=== PATIENT | female | born 1950 | race Caucasian/White ===

== ENCOUNTER 2017-02-27 18:10 | Emergency (ER) | payer MEDICARE, BC ==
[2017-02-27 19:13] VITALS: BP 148/73
--- NOTE | 2017-02-27 19:30 | EDM.PDOC ---
[id number]: RASH Time Seen by Provider: 02/27/17 19:15 Source of Information: Reports: Patient History Limitations: Reports: No Limitations - History of Present Illness INITIAL COMMENTS - FREE TEXT/NARRATIVE: 66-year-old female is developed a rash on her chin and upper neck and chest over the past 3 days. She's been working with some cedar stain she thinks she might be reacting to. She has been putting some topical antibiotic ointment on but it is getting worse. No shortness of breath, no widespread rash. Location: Reports: Face, Neck, Chest - Related Data Allergies Allergy/AdvReac Type Severity Reaction Status Date / Time No Known Allergies Allergy Verified 05/09/15 13:31 Home Meds: Home Meds Albuterol Sulfate [Proair Hfa] 2 puff IH QID PRN 05/10/15 [History] Albuterol [Proventil] 1 inhalation IH Q4H PRN 05/10/15 [History] Aspirin [Children's Aspirin] 81 mg PO DAILY 05/10/15 [History] Cholecalciferol (Vitamin D3) [Vitamin D] 2,000 unit PO DAILY 05/10/15 [History] Citalopram Hydrobromide [Celexa] 20 mg PO DAILY 05/10/15 [History] Lisinopril/Hydrochlorothiazide [Lisinopril-Hctz 20-12.5 mg Tab] 1 tab PO DAILY 05/10/15 [History] Loratadine [Claritin] 10 mg PO DAILY 05/10/15 [History] Montelukast [Singulair] 10 mg PO BEDTIME 05/10/15 [History] Simvastatin [Simvastatin] 20 mg PO DAILY 05/10/15 [History] buPROPion HCl [Wellbutrin Xl] 150 mg PO QAM 05/10/15 [History] Past Medical History Cardiovascular History: Reports: Hypertension Respiratory History: Reports: Asthma Social & Family History - Tobacco Use Smoking Status *Q: Never Smoker Second Hand Smoke Exposure: No - Caffeine Use Caffeine Use: Reports: Coffee - Recreational Drug Use Recreational Drug Use: No ED ROS GENERAL - Review of Systems Review Of Systems: See Below Constitutional: Denies: Fever, Chills Respiratory: Denies: Shortness of Breath, Cough Cardiovascular: Denies: Chest Pain GI/Abdominal: Denies: Abdominal Pain ED EXAM, SKIN/RASH Exam: See Below Exam Limited By: No Limitations General Appearance: Alert, No Apparent Distress Head: Other (Erythematous rash over the chin and left zygomatic area) Neck: Other (Erythematous rash over the anterior neck, upper chest) Respiratory/Chest: No Respiratory Distress Neurological: Alert, Oriented Psychiatric: Normal Affect, Normal Mood Course - Vital Signs Last Recorded V/S: Last Vital Signs Temp 98.8 F 02/27/17 19:13 Pulse 97 02/27/17 19:13 Resp 16 02/27/17 19:13 BP 148/73 H 02/27/17 19:13 Pulse Ox 97 02/27/17 19:13 - Re-Assessments/Exams Free Text/Narrative Re-Assessment/Exam: 02/27/17 19:29 Patient was told to stop the antibiotic ointment, given triamcinolone cream to apply twice daily and also oral prednisone to take 50 mg daily up to 6 days. She'll recheck in 2-3 days if not improving. Departure - Departure Time of Disposition: 19:45 Disposition: Home, Self-Care 01 Condition: good Clinical Impression: Contact dermatitis Qualifiers: Contact dermatitis type: irritant Contact dermatitis trigger: unspecified trigger Qualified Code(s): L24.9 - Irritant contact dermatitis, unspecified cause - Discharge Information Instructions: Contact Dermatitis, [id number] Referrals: Arielle Castellanos CNM [Primary Care Provider] - Forms: ED Department Discharge Care Plan Goals: Try topical cream twice daily along with 5 pills of prednisone with your first food each day up to 6 days. Consider rechecking in 2-3 days if not significant improvement.
== END 2017-02-27 19:45 | disposition home or self-care (01) ==
LOC: JP.ED 18:10
DX: L24.9 Irritant contact dermatitis, unspecified cause (principal); I10 Essential (primary) hypertension; J45.909 Unspecified asthma, uncomplicated; Z79.82 Long term (current) use of aspirin; Z79.899 Other long term (current) drug therapy
CPT/HCPCS: 99283

== ENCOUNTER 2018-06-10 06:23 | Day surgery (SDC) | payer MEDICARE, BC ==
[2018-06-10] MEDS ORDERED: Lactated Ringers 1,000 ML IV SCH (07:00)
[2018-06-10] MEDS ORDERED: fentaNYL 100 MCG/2 ML SDV ONE (07:16)
[2018-06-10] MEDS ORDERED: Midazolam 1 MG/ML 2 ML SDV ONE (07:16)
[2018-06-10] MEDS ORDERED: Propofol 200 MG/20 ML SDV ONE (07:16)
[2018-06-10 09:20] VITALS: BP 117/70
--- NOTE | 2018-06-13 08:19 | OR ---
DATE OF PROCEDURE: 06/10/2018 PREOPERATIVE DIAGNOSIS: History of precancerous polyps. POSTOPERATIVE DIAGNOSES: Diverticulosis and history of precancerous polyps. PROCEDURE PERFORMED: Colonoscopy to the cecum. SURGEON: Rigo Kelley MD ANESTHESIA: IV anesthesia with monitored anesthesia care. INDICATION: This 68-year-old white female is referred for a colonoscopy because of history of precancerous polyps. She says her last colonoscopic exam was done 3 years ago. I counseled her for the procedure including risks, alternatives, and she gave her informed consent to proceed. DESCRIPTION OF PROCEDURE: The patient was placed in the left lateral decubitus position. IV anesthesia was administered by the Anesthesia Service. Time-out was held. A rectal exam was performed, which was unremarkable. The flexible video Olympus colonoscope was introduced through her anus, up her rectum, out her colon all the way to the cecum. En route, we saw multiple left-sided diverticula, some were quite large. There was no bleeding or inflammation associated with them. Once the cecum was reached, the scope was slowly withdrawn examining the mucosa throughout. No additional mucosal abnormalities were noted. The scope was retroflexed in the rectum with the distal rectum appearing unremarkable. The scope was straightened and removed. She tolerated the procedure well. No neoplastic lesions were seen. Rigo Kelley MD /[id number]
== END 2018-06-10 09:18 | disposition home or self-care (01) ==
LOC: JP.SDS 06:23
PROVIDERS: ATTEND Surgery
DX: Z12.11 Encounter for screening for malignant neoplasm of colon (principal); K57.30 Diverticulosis of large intestine without perforation or abscess without bleeding; I10 Essential (primary) hypertension; J45.909 Unspecified asthma, uncomplicated; E78.5 Hyperlipidemia, unspecified; K21.9 Gastro-esophageal reflux disease without esophagitis; F32.9 Major depressive disorder, single episode, unspecified; Z86.010 Personal history of colon polyps
CPT/HCPCS: G0105; J2250; J2704; J3010; J7120

== ENCOUNTER 2021-06-26 05:51 | Day surgery (SDC) | payer MEDICARE ==
[2021-06-26] MEDS ORDERED: Sodium Chloride 0.9% 10 ML Syringe FLUSH PRN (06:30)
[2021-06-26 07:47] VITALS: BP 134/70; PULSE 66
--- NOTE | 2021-06-26 09:23 | OR ---
DATE OF PROCEDURE: 06/26/2021 SURGEON: Loan Schneider MD POSTOPERATIVE CARE: Postoperative care will be provided mainly at the [address] [place] [address] [facility] in conjunction with [facility]. PREOPERATIVE DIAGNOSIS: Cataract, left eye. POSTOPERATIVE DIAGNOSIS: Cataract, left eye. PROCEDURE: Phacoemulsification with intraocular lens placement, left eye. ANESTHESIA: Topical and intracameral. ESTIMATED BLOOD LOSS: Minimal. COMPLICATIONS: None. PATHOLOGY SPECIMENS: None. SURGICAL FINDINGS: None. INDICATION FOR PROCEDURE: The patient is a 71-year-old female with history of a visually significant cataract in the left eye, which interfered with activities of daily living. This consisted of a nuclear sclerosis cataract. Following careful discussion of the risks, benefits and alternatives to cataract extraction with intraocular lens placement including blindness and , the patient elected to proceed, and informed, written consent was obtained prior to the procedure. DESCRIPTION OF THE PROCEDURE: The patient was previously identified, and a dilia placed above the left eye. All sources, including the patient, indicated that the left eye was the correct eye. The patient was subsequently taken to the operating room where standard monitors were applied. The patient was then prepped and draped in the usual sterile fashion for ophthalmic surgery. Attention was first directed at the 12 o'clock position where a paracentesis port was fashioned. Shugar solution followed by Viscoat was instilled into the eye. Attention was then directed to the 8:30 position where a triplanar incision was made in a near-clear manner using a keratome. A continuous capsulorrhexis was then made using a combination of the cystotome and Utrata forceps. Hydrodissection was achieved using a balanced salt solution, and the lens rotated nicely. Phacoemulsification was then done using a modified [id number] technique without complication. Phaco time was 5.34 CDE. The remaining cortex was removed using the irrigation/aspiration handpiece. Provisc was then instilled into the eye. A Technis lens, model DCB00, at 18.0 diopters was then placed in the capsular bag using an [place] injector. The remaining viscoelastic was removed using the irrigation/aspiration forceps. All wounds were then checked and found to be watertight. The lid speculum and drapes were removed. Maxitrol ointment was placed in the patient's left eye, and the eye was shielded. The patient tolerated the procedure well. The patient was instructed to follow up tomorrow. All needle and sponge counts were correct at the end of the procedure. Loan Schneider MD /[id number]
== END 2021-06-26 08:00 | disposition home or self-care (01) ==
LOC: JP.SDS 05:51
PROVIDERS: ATTEND Ophthalmology
DX: H25.12 Age-related nuclear cataract, left eye (principal); I10 Essential (primary) hypertension; J45.909 Unspecified asthma, uncomplicated; Z88.1 Allergy status to other antibiotic agents; Z88.8 Allergy status to other drugs, medicaments and biological substances
CPT/HCPCS: 66984; V2632

== ENCOUNTER 2021-07-10 06:42 | Day surgery (SDC) | payer MEDICARE ==
[2021-07-10] MEDS ORDERED: Sodium Chloride 0.9% 10 ML Syringe FLUSH PRN (07:30)
[2021-07-10 08:24] VITALS: BP 127/95; PULSE 63
--- NOTE | 2021-07-15 12:01 | OR ---
DATE OF PROCEDURE: 07/10/2021 SURGEON: Loan Schneider MD POSTOPERATIVE CARE: Postoperative care will be provided mainly at the [address] [place] [address] [facility] in conjunction with [facility]. PREOPERATIVE DIAGNOSIS: Cataract, right eye. POSTOPERATIVE DIAGNOSIS: Cataract, right eye. PROCEDURE: Phacoemulsification with intraocular lens placement, right eye. ANESTHESIA: Topical and intracameral. ESTIMATED BLOOD LOSS: Minimal. COMPLICATIONS: None. PATHOLOGY SPECIMENS: None. SURGICAL FINDINGS: None. INDICATION FOR PROCEDURE: The patient is a 71-year-old female with history of a visually significant cataract in the right eye, which interfered with activities of daily living. This consisted of a nuclear sclerosis cataract. Following careful discussion of the risks, benefits and alternatives to cataract extraction with intraocular lens placement including blindness and , the patient elected to proceed, and informed, written consent was obtained prior to the procedure. DESCRIPTION OF THE PROCEDURE: The patient was previously identified, and a dilia placed above the right eye. All sources, including the patient, indicated that the right eye was the correct eye. The patient was subsequently taken to the operating room where standard monitors were applied. The patient was then prepped and draped in the usual sterile fashion for ophthalmic surgery. Attention was first directed at the 12 o'clock position where a paracentesis port was fashioned. Shugar solution followed by Viscoat was instilled into the eye. Attention was then directed to the 8:30 position where a triplanar incision was made in a near-clear manner using a keratome. A continuous capsulorrhexis was then made using a combination of the cystotome and Utrata forceps. Hydrodissection was achieved using a balanced salt solution, and the lens rotated nicely. Phacoemulsification was then done using a modified [id number] technique without complication. Phaco time was 6.16 CDE. The remaining cortex was removed using the irrigation/aspiration handpiece. Provisc was then instilled into the eye. A Technis lens, model DCB00, at 18.0 diopters was then placed in the capsular bag using an [place] injector. The remaining viscoelastic was removed using the irrigation/aspiration forceps. All wounds were then checked and found to be watertight. The lid speculum and drapes were removed. Maxitrol ointment was placed in the patient's right eye, and the eye was shielded. The patient tolerated the procedure well. The patient was instructed to follow up tomorrow. All needle and sponge counts were correct at the end of the procedure. There were no surgical findings. Loan Schneider MD /[id number]
== END 2021-07-10 08:30 | disposition home or self-care (01) ==
LOC: JP.SDS 06:42
PROVIDERS: ATTEND Ophthalmology
DX: H25.11 Age-related nuclear cataract, right eye (principal); J45.909 Unspecified asthma, uncomplicated; I10 Essential (primary) hypertension; K21.9 Gastro-esophageal reflux disease without esophagitis
CPT/HCPCS: 66984; V2632

== ENCOUNTER 2022-11-23 07:31 | Day surgery (SDC) | payer MEDICARE ==
[2022-11-23] MEDS ORDERED: fentaNYL 50 MCG/ML SDV ONE (07:54)
[2022-11-23] MEDS ORDERED: Propofol 200 MG/20 ML SDV ONE ×2 (07:54→08:50)
[2022-11-23] MEDS ORDERED: Midazolam 1 MG/ML 2 ML SDV ONE (08:05)
[2022-11-23] MEDS ORDERED: Lactated Ringers 1,000 ML IV SCH (08:30)
[2022-11-23 10:07] VITALS: BP 153/71; PULSE 62
== END 2022-11-23 10:20 | disposition home or self-care (01) ==
LOC: JP.SDS 07:31
PROVIDERS: ATTEND Student in an Organized Health Care Education/Training Program
DX: D12.0 Benign neoplasm of cecum (principal); K62.1 Rectal polyp; K57.30 Diverticulosis of large intestine without perforation or abscess without bleeding; I10 Essential (primary) hypertension; K21.9 Gastro-esophageal reflux disease without esophagitis; E78.00 Pure hypercholesterolemia, unspecified; Z79.899 Other long term (current) drug therapy; Z87.891 Personal history of nicotine dependence; Z88.0 Allergy status to penicillin; Z88.1 Allergy status to other antibiotic agents
CPT/HCPCS: 45380; 45385; J2250; J2704; J3010; J7120

== ENCOUNTER 2025-02-05 05:50 | Day surgery (SDC) | payer MEDICARE ==
[2025-02-05] MEDS: Lactated Ringers 1,000 ML IV SCH (06:26)
[2025-02-05] MEDS ORDERED: fentaNYL 250 MCG/5 ML SDV ONE (07:00)
[2025-02-05] MEDS ORDERED: Dexamethasone 4 MG/ML SDV ONE (07:01)
[2025-02-05] MEDS ORDERED: Glycopyrrolate 0.2 MG/ML 5 ML MDV ONE (07:01)
[2025-02-05] MEDS ORDERED: Neostigmine Methylsulfate 10 MG/10 ML MDV ONE (07:01)
[2025-02-05] MEDS ORDERED: Succinylcholine 200 MG/10 ML MDV ONE (07:01)
[2025-02-05] MEDS ORDERED: Propofol 200 MG/20 ML SDV ONE (07:01)
[2025-02-05] MEDS ORDERED: Ondansetron 4 MG/2 ML SDV ONE (07:01)
[2025-02-05] MEDS ORDERED: Rocuronium 50 MG/5 ML Vial ONE (07:01)
[2025-02-05] MEDS: Indocyanine Green 25 MG SDV IV ONE (07:03)
[2025-02-05] MEDS: metroNIDAZOLE/Normal Saline 500 MG in Premix Bag 1 BAG IV ONE (07:04)
[2025-02-05] MEDS: ceFAZolin 2 GM in Premix Bag 1 BAG IV ONE (07:45)
[2025-02-05] MEDS ORDERED: fentaNYL 100 MCG/2 ML SDV ONE (08:14)
[2025-02-05] MEDS ORDERED: Labetalol 20 MG/4 ML Syringe ONE (08:31)
[2025-02-05] MEDS ORDERED: Lactated Ringers 1,000 ML ONE (08:33)
[2025-02-05] MEDS: Bupivacaine 0.5% 50 ML MDV ONE (08:40)
[2025-02-05] MEDS: Lidocaine 1% with EPINEPHrine 1:100,000 50 ML MDV ONE (08:40)
[2025-02-05] MEDS: Ondansetron 4 MG/2 ML SDV IVPUSH PRN (10:41)
[2025-02-05 13:26] VITALS: BP 163/75; PULSE 51
== END 2025-02-05 13:20 | disposition home or self-care (01) ==
LOC: JP.SDS 05:50
PROVIDERS: ATTEND Surgery
DX: K81.1 Chronic cholecystitis (principal); I12.9 Hypertensive chronic kidney disease with stage 1 through stage 4 chronic kidney disease, or unspecified chronic kidney disease; N18.31 Chronic kidney disease, stage 3a; E78.00 Pure hypercholesterolemia, unspecified; F32.5 Major depressive disorder, single episode, in full remission; J45.909 Unspecified asthma, uncomplicated; Z87.891 Personal history of nicotine dependence
CPT/HCPCS: 00790; 47563; 88304; J0171; J0330; J0665; J0690; J1100; J1596; J1836; J1920; J2405; J2704; J2710; J2795; J3010; J7120; J3490